=== PATIENT | male | born 1945 | race Caucasian/White ===

== ENCOUNTER 2016-09-23 09:07 | Day surgery (SDC) | payer OTHER, MEDICARE ==
[2016-09-22 14:20] VITALS: BMI 30.7
[2016-09-23] MEDS ORDERED: PROPOFOL 20 ML ONE ×4 (10:00)
[2016-09-23 11:18] VITALS: TEMP 98
[2016-09-23 13:32] VITALS: BP 135/94; PULSE 71
--- NOTE | 2016-09-26 13:59 | PATH ---
Surgical Pathology Report Patient Name: BASSEM GREWAL [facility]. Rec. #: [id number] /Age/Gender: 1945 (Age: 71) / M Account: [id number] Location: [facility]-ENDOSCOPY Taken: 09/23/2016 Received: 09/23/2016 Reported: 09/26/2016 Physicians: Musa Diaz M.D. Specimen(s) Received A: BX 2ND PORTION DUODENUM B: BX ANTRUM C: BX MID ESOPHAGUS D: BX RIGHT COLON POLYP E: BX DESCENDING COLON POLYP Clinical History History of gastric ulcer, colon polyp Duodenal ulcer, erosive gastritis, colon polyps, diverticulosis Final Diagnosis A. DUODENUM, SECOND PORTION, BIOPSY: FOCALLY ULCERATED DUODENAL MUCOSA WITH ASSOCIATED ACTIVE AND CHRONIC INFLAMMATION. NO HISTOLOGIC EVIDENCE OF GLUTEN SENSITIVE ENTEROPATHY (CELIAC DISEASE). B. STOMACH, ANTRUM, BIOPSY: GASTRIC ANTRUM MUCOSA WITH MODERATE CHRONIC GASTRITIS AND MARKED REACTIVE GASTROPATHY WITH FOCAL SURFACE ULCERATION WITH ASSOCIATED ACUTE INFLAMMATION. IMMUNOSTAIN FOR H. PYLORI IS NEGATIVE FOR ORGANISMS. C. ESOPHAGUS, MID, BIOPSY: SQUAMOUS EPITHELIUM WITH CHRONIC INFLAMMATION AND REFLUX TYPE CHANGES. NO EVIDENCE OF EOSINOPHILIC ESOPHAGITIS. D. COLON, RIGHT, POLYP, BIOPSY: POLYPOID FRAGMENT OF COLONIC MUCOSA WITH PROMINENT REACTIVE LYMPHOID AGGREGATE AND SURFACE HYPERPLASTIC CHANGE. E. COLON, DESCENDING, POLYP, BIOPSY: TUBULAR ADENOMA. Electronically Signed Felipe Doran M.D. Gross Description A. Received in formalin, labeled "biopsy second portion of duodenum and duodenal bulb" are 4 sharpe, irregular portions of soft tissue ranging from 0.2-0.3 cm in greatest dimension. The specimens are submitted in toto in one cassette. B. Received in formalin, labeled "biopsy antrum" are 4 sharpe, irregular portions of soft tissue ranging from 0.2-0.5 cm in greatest dimension. The specimens are submitted in toto in one cassette. C. Received in formalin, labeled "biopsy mid esophagus" are 3 sharpe, irregular portions of soft tissue ranging from 0.1-0.3 cm in greatest dimension. The specimens are submitted in toto in one cassette. D. Received in formalin, labeled "biopsy right colon polyp" are 4 sharpe, irregular portions of soft tissue ranging from 0.1-0.2 cm in greatest dimension. The specimens are submitted in toto in one cassette. E. Received in formalin, labeled "biopsy descending colon" is a sharpe, irregular portion of soft tissue measuring 0.3 cm in greatest dimension. The specimen is submitted in toto in one cassette. 09/23/201609/23/2016
== END 2016-09-23 12:20 | disposition home or self-care (01) ==
LOC: JASU-ENDO 09:07
PROVIDERS: ATTEND Internal Medicine Gastroenterology
PROC: 0DBM8ZX Excision of Descending Colon, Via Natural or Artificial Opening Endoscopic, Diagnostic (ICD-10-PCS; 2016-09-23)
PROC: 0DB98ZX Excision of Duodenum, Via Natural or Artificial Opening Endoscopic, Diagnostic (ICD-10-PCS; 2016-09-23)
PROC: 0DB68ZX Excision of Stomach, Via Natural or Artificial Opening Endoscopic, Diagnostic (ICD-10-PCS; 2016-09-23)
PROC: 0DB58ZX Excision of Esophagus, Via Natural or Artificial Opening Endoscopic, Diagnostic (ICD-10-PCS; 2016-09-23)
PROC: 0DBK8ZX Excision of Ascending Colon, Via Natural or Artificial Opening Endoscopic, Diagnostic (ICD-10-PCS; principal; 2016-09-23 10:00)
DX: K57.30 Diverticulosis of large intestine without perforation or abscess without bleeding (principal); Z86.010 Personal history of colon polyps; D12.2 Benign neoplasm of ascending colon; D12.4 Benign neoplasm of descending colon; K64.8 Other hemorrhoids; R10.9 Unspecified abdominal pain; K25.9 Gastric ulcer, unspecified as acute or chronic, without hemorrhage or perforation; K26.9 Duodenal ulcer, unspecified as acute or chronic, without hemorrhage or perforation
CPT/HCPCS: 88305-TC; 88342-TC

== ENCOUNTER 2022-06-02 04:28 | Day surgery (SDC) | payer OTHER, MEDICARE ==
[2022-05-31 09:57] VITALS: BMI 31.1
[2022-06-02 09:54] VITALS: TEMP 98.2
[2022-06-02 10:31] VITALS: BP 112/77; PULSE 64; RESP 22
== END 2022-06-02 11:10 | disposition home or self-care (01) ==
LOC: JASU-ENDO 04:28
PROVIDERS: ATTEND Internal Medicine Gastroenterology
PROC: 0DBP8ZX Excision of Rectum, Via Natural or Artificial Opening Endoscopic, Diagnostic (ICD-10-PCS; 2022-06-02)
PROC: 0DBM8ZX Excision of Descending Colon, Via Natural or Artificial Opening Endoscopic, Diagnostic (ICD-10-PCS; 2022-06-02)
PROC: 0DB98ZX Excision of Duodenum, Via Natural or Artificial Opening Endoscopic, Diagnostic (ICD-10-PCS; 2022-06-02)
PROC: 0DB78ZX Excision of Stomach, Pylorus, Via Natural or Artificial Opening Endoscopic, Diagnostic (ICD-10-PCS; 2022-06-02)
PROC: 0DB48ZX Excision of Esophagogastric Junction, Via Natural or Artificial Opening Endoscopic, Diagnostic (ICD-10-PCS; 2022-06-02)
PROC: 0DBH8ZX Excision of Cecum, Via Natural or Artificial Opening Endoscopic, Diagnostic (ICD-10-PCS; principal; 2022-06-02 10:00)
DX: Z12.11 Encounter for screening for malignant neoplasm of colon (principal); D12.0 Benign neoplasm of cecum; D12.4 Benign neoplasm of descending colon; D12.8 Benign neoplasm of rectum; K64.8 Other hemorrhoids; K57.30 Diverticulosis of large intestine without perforation or abscess without bleeding; K21.00 Gastro-esophageal reflux disease with esophagitis, without bleeding; K29.70 Gastritis, unspecified, without bleeding; Z86.010 Personal history of colon polyps; Z87.11 Personal history of peptic ulcer disease
CPT/HCPCS: 88305-TC; 88342-TC

== ENCOUNTER 2024-06-05 04:05 | Day surgery (SDC) | payer OTHER, MEDICARE ==
[2024-06-05 07:03] VITALS: RESP 18
[2024-06-05] MEDS ORDERED: COCAINE HCL 4% TOPICAL SOLUTION 4 ML BOTTLE TP ONE (07:30)
[2024-06-05] MEDS ORDERED: LIDOCAINE 1%/EPI 1:100000 (20 ML MULTI DOSE VIAL) ONE (07:30)
[2024-06-05] MEDS ORDERED: ACETAMINOPHEN 325 MG TABLET (FP) PO PRN (07:59)
[2024-06-05] MEDS ORDERED: PROPOFOL 40 ML ONE (07:59)
[2024-06-05] MEDS ORDERED: MIDAZOLAM HCL 2 MG/2 ML SINGLE DOSE VIAL ONE (08:00)
[2024-06-05] MEDS ORDERED: SUCCINYLCHOLINE CHLORIDE 200 MG/10 ML SYRINGE ONE (08:00)
[2024-06-05] MEDS ORDERED: ROCURONIUM BROMIDE 50 MG/5 ML SYRINGE ONE (08:00)
[2024-06-05] MEDS: ceFAZolin SODIUM 1 GM VIAL IVPB ONE (08:15)
[2024-06-05] MEDS: COCAINE HCL 4% TOPICAL SOLUTION 4 ML BOTTLE TP ONE ×2 (08:26)
[2024-06-05] MEDS: LIDOCAINE 1%/EPI 1:100000 (20 ML MULTI DOSE VIAL) IJ ONE ×3 (08:26)
[2024-06-05] MEDS ORDERED: NEOSTIGMINE METHYLSULFATE 0.5 MG/1 ML - 10 ML MDV ONE (09:38)
[2024-06-05] MEDS ORDERED: BACITRACIN ZINC 15 GM TUBE TOPICAL OINTMENT ONE (09:47)
[2024-06-05] MEDS ORDERED: oxyCODONE HCL 5 MG TABLET PO PRN (10:22)
[2024-06-05] MEDS ORDERED: ONDANSETRON 4 MG/2 ML VIAL IVPUSH PRN (10:22)
[2024-06-05] MEDS ORDERED: SERTRALINE HCL 50 MG TABLET (FP) PO SCH (10:30)
[2024-06-05] MEDS ORDERED: LACTATED RINGERS SOLUTION 1,000 ML IV SCH (10:30)
[2024-06-05] MEDS: ATORVASTATIN CA 80 MG TABLET (FP) PO SCH (21:20)
[2024-06-06] MEDS: PANTOPRAZOLE 40 MG TABLET PO ONE (00:06)
[2024-06-06] MEDS: MAG HYDROX/AL HYDROX/SIMETH 30 ML UNIT-DOSE CUP PO ONE (00:15)
[2024-06-06] MEDS: LEVOTHYROXINE NA 200 MCG TABLET PO SCH (07:26)
[2024-06-06] MEDS: LISINOPRIL 20 MG TABLET PO SCH (09:15)
[2024-06-06 11:42] VITALS: BP 100/81; PULSE 63; TEMP 97.5
== END 2024-06-06 11:19 | disposition home or self-care (01) ==
LOC: JASUSAT 04:05 → J8W 15:48 → JASUSAT 06-06 11:19
PROVIDERS: ATTEND Otolaryngology
PROC: 09TU8ZZ Resection of Right Ethmoid Sinus, Via Natural or Artificial Opening Endoscopic (ICD-10-PCS; 2024-06-05)
PROC: 09BR8ZX Excision of Left Maxillary Sinus, Via Natural or Artificial Opening Endoscopic, Diagnostic (ICD-10-PCS; 2024-06-05)
PROC: 09TV8ZZ Resection of Left Ethmoid Sinus, Via Natural or Artificial Opening Endoscopic (ICD-10-PCS; principal; 2024-06-05 08:00)
DX: J32.4 Chronic pansinusitis (principal); J33.8 Other polyp of sinus
CPT/HCPCS: 87070; 87076; 87077; 87186; 87205; 88304-TC; 94760; J0131

== ENCOUNTER 2025-02-12 11:15 | Emergency (ER) | payer OTHER, MEDICARE ==
[2025-02-12 11:23] VITALS: BMI 37.0
[2025-02-12 12:50] LABS: VENOUS BASE EXCESS 1.4 mmol/L (-2-2); VENOUS O2 SATURATION 55.9 % (70-80); VENOUS PCO2 40.2 mmHg (38-52); VENOUS PH 7.426 (7.310-7.410)
[2025-02-12 12:52] LABS: ABSOLUTE IMMATURE GRANULOCYTES 0.03 x10^3/uL (0.0-0.031); BASOPHILS # 0.03 x10^3/uL (0.01-0.08); EOSINOPHIL % 0.4 % (0.8-7.0); EOSINOPHILS # 0.03 x10^3/uL (0.04-0.54); HEMATOCRIT 45.4 % (40.1-51.0); MEAN CELL VOLUME 91.2 fl (79.0-92.2); MEAN PLT VOLUME 10.3 fl (9.4-12.4); MONOCYTE # 0.74 x10^3/uL (0.30-0.82); MONOCYTE % 9.6 % (5.3-12.2); PLATELET COUNT 245 x10^3/uL (163-337); RDW 12.5 % (12.2-16.6)
[2025-02-12 13:08] LABS: POTASSIUM 4.3 mmol/L (3.5-5.1)
[2025-02-12 13:10] LABS: ALBUMIN 3.7 g/dl (3.4-5.0); BLOOD UREA NITROGEN 12.4 mg/dL (7-18); CALCIUM 9.2 mg/dL (8.5-10.1)
[2025-02-12 13:14] LABS: CREATININE 0.9 mg/dL (0.55-1.3)
[2025-02-12 13:15] LABS: BILIRUBIN,TOTAL 0.6 mg/dL (0.2-1); TOT PROT 6.7 g/dl (6.4-8.2)
[2025-02-12] MEDS ORDERED: ACETAMINOPHEN INJECTION 100 ML ONE ×2 (16:51→21:01)
[2025-02-12] MEDS: ACETAMINOPHEN 1000 MG/100 ML BAG IVPB ONE (16:54)
[2025-02-12 17:05] LABS: URINE APPEARANCE CLEAR; URINE BILIRUBIN NEGATIVE (NEGATIVE); URINE COLOR YELLOW; URINE GLUCOSE (UA) NEGATIVE (NEGATIVE); URINE KETONE 2+ (NEGATIVE); URINE LEUK ESTERASE NEGATIVE (NEGATIVE); URINE NITRITE NEGATIVE (NEGATIVE); URINE PROTEIN NEGATIVE (NEGATIVE)
[2025-02-12 17:21] VITALS: RESP 18
[2025-02-12] MEDS: ACETAMINOPHEN 500 MG TABLET (FP) PO ONE (21:26)
[2025-02-12] MEDS: LACTATED RINGERS SOLUTION 1000 ML INFUS.BAG IV ONE (21:27)
[2025-02-12 22:06] VITALS: BP 144/89; PULSE 89; TEMP 98.9
== END 2025-02-12 22:06 | disposition short-term general hospital (02) ==
LOC: JER 11:15
PROC: 3E033NZ Introduction of Analgesics, Hypnotics, Sedatives into Peripheral Vein, Percutaneous Approach (ICD-10-PCS; principal; 2025-02-12)
DX: R41.82 Altered mental status, unspecified (principal); D32.0 Benign neoplasm of cerebral meninges; R00.0 Tachycardia, unspecified
CPT/HCPCS: 0241U-QW; 36415; 70450-TC; 71045-TC-FY; 80053; 81003; 82803; 83735; 84146; 84484; 85025; 87086; 93005; 93010; 93880-TC; 99285-25